=== PATIENT | male | born 1955 | race Caucasian/White ===

== ENCOUNTER → 2024-07-18 | Outpatient (CLI) | payer BC, MEDICARE, OTHER ==
--- NOTE | 2024-07-18 19:29 | US ---
EXAMINATION TYPE: US kidneys/renal and bladder DATE OF EXAM: 07/18/2024 COMPARISON: US & CT CLINICAL INDICATION: Male, 69 years old with history of R31.9 HEMATURIA, UNSPECIFIED; TECHNIQUE: Grayscale and color Doppler imaging of the bilateral kidneys and urinary bladder: FINDINGS: EXAM MEASUREMENTS: Right Kidney: 11.7 x 5.9 x 5.9 cm Left Kidney: 11.9 x 5.6 x 4.4 cm Right Kidney: No hydronephrosis or masses seen Left Kidney: Cortical thinning, lobulated contour, no evidence of hydro Bladder: wnl Bilateral Jets seen: No There is no evidence for hydronephrosis at this point in time. No nephrolithiasis is seen. Corticome dullary differentiation is maintained. Cortical thinning with lobular contour of the left kidney. No masses are identified. The urinary bladder is anechoic. Bilateral ureteral jets are seen. IMPRESSION: 1. No hydronephrosis or nephrolithiasis. No discrete renal mass identified. Consider further evaluati on with CT urogram if there is continued clinical concern. 2. Cortical thinning of the left kidney which may be sequelae of prior insult. [facility], , 07/18/2024 7:27 PM
== END | disposition home or self-care (01) ==
LOC: RADUSWWP 14:57
PROVIDERS: ATTEND Internal Medicine
DX: R31.9 Hematuria, unspecified
CPT/HCPCS: 76770

== ENCOUNTER 2025-01-30 05:45 | Day surgery (SDC) | payer MEDICARE ==
[2025-01-25 11:53] VITALS: BMI 33.8
[~2025-01-30 05:45] MED LIST: GENTAMICIN 120 MG in SODIUM CHLORIDE 0.9% 100 ML IVPB PRN
[2025-01-30] MEDS ORDERED: LIDOCAINE 1% (10MG/ML) FOR IV START INTRADERMA PRN (05:55)
--- NOTE | 2025-01-30 06:46 | XR ---
EXAMINATION TYPE: XR KUB DATE OF EXAM: 01/30/2025 COMPARISON: CT urogram to 02/27/2025 HISTORY: N20.0 left renal stone TECHNIQUE: Single supine KUB image of the abdomen is obtained FINDINGS: Small bowel demonstrates no evidence for dilatation or air fluid levels. Gas and fecal material is seen in non-distended colon. No convincing evidence for pneumoperitoneum. Redemonstration of curvilinear calcification in the region of the left kidney. Vascular calcification s identified. Surgical clip within the left pelvis. The lung bases are clear. The osseous structures are intact. IMPRESSION: 1. Redemonstration of irregular curvilinear opacity within the region of the left kidney as seen on prior CT urogram. 2. 5 mm calcification overlying the region of the left kidney which is favored to represent a vascul ar calcification on CT urogram. [facility], , 01/30/2025 6:44 AM
[2025-01-30] MEDS ORDERED: fentaNYL (PF) 50 MCG/ML 2 ML AMP IV PRN (07:00)
[2025-01-30] MEDS: IV FLUID CONTINUATION 1,000 ML IV ONE (07:20)
[2025-01-30 07:21] LABS: Glucose,Whole Blood 134 mg/dL (70-110)
[2025-01-30] MEDS: LACTATED RINGERS 1,000 ML IV SCH (07:22)
[2025-01-30] MEDS: DEXAMETHASONE SOD PHOSPHATE 4 MG/ML 1 ML VIAL IV ONE (07:24)
[2025-01-30] MEDS: ONDANSETRON 4 MG/2 ML VIAL IVP ONE (07:25)
[2025-01-30] MEDS ORDERED: SUCCINYLCHOLINE CHLORIDE 200 MG/10 ML VIAL IV ONE (07:27)
[2025-01-30] MEDS ORDERED: GLYCOPYRROLATE 0.2 MG/ML 2 ML VIAL ONE (07:27)
[2025-01-30] MEDS ORDERED: ROCURONIUM 10 MG/ML (5 ML VIAL) IV ONE (07:27)
[2025-01-30] MEDS ORDERED: fentaNYL (PF) 50 MCG/ML 2 ML AMP ONE (07:27)
[2025-01-30] MEDS ORDERED: ePHEDrine 50 MG/ML 1 ML VIAL ONE (07:27)
[2025-01-30] MEDS ORDERED: VASOPRESSIN 20 UNIT/ML 1 ML VIAL ONE (07:27)
[2025-01-30] MEDS ORDERED: NEOSTIGMINE 1 MG/ML 10 ML VIAL ONE (07:27)
[2025-01-30] MEDS ORDERED: PROPOFOL 10 MG/ML 20 ML VIAL IV ONE (07:27)
[2025-01-30] MEDS ORDERED: PHENYLEPHRINE 10 MG/ML VIAL ONE (07:27)
[2025-01-30] MEDS ORDERED: LIDOCAINE 2% (PF) 20 MG/ML 5 ML VIAL ONE (07:27)
[2025-01-30] MEDS: ceFAZolin 2 GM in DEXTROSE 5% IN WATER 50 ML IVPB PRN (07:35)
[2025-01-30] MEDS: IOPAMIDOL-370 100ML BTL MISCELLANE ONE (07:58)
[2025-01-30] MEDS: LACTATED RINGERS 1,000 ML IV ONE (09:20)
--- NOTE | 2025-01-30 10:06 | P.OP ---
Date of Procedure: 01/30/25 Preoperative Diagnosis: Left renal stones Postoperative Diagnosis: Same Procedure(s) Performed: Percutaneous access left kidney Anesthesia: GETA Pathology: none sent Condition: stable Indications for Procedure: Patient is 69. He has a large left renal stone. is doing a percutaneous nephrostolithotomy and has asked me to do percutaneous access Description of Procedure: The patient is on the operating table. He has had previous cystoscopy with placement of a left ureteral catheter. Air is injected through the catheter to outline the collecting system. I first attempt with a Chiba needle to intubate a left middle pole calyx without fail. I then unable to intubate a left upper pole calyx. I passed the [place] mandrel wire down into the proximal ureter. The 6 Cameroonian catheter was passed over the wire into the left renal pelvis. I removed the [place] mandrel wire and passed an 035 Super Stiff wire into the left proximal ureter. Over the Super Stiff wire then used an 8-10 Cameroonian dilator. The inner sheath was removed and I passed a second working wire into the proximal ureter. Over the working wire then dilate the tract to 30 Cameroonian with the dilating balloon and passed a 30 Cameroonian sheath into the upper pole calyx on the left side.
--- NOTE | 2025-01-30 10:20 | FL ---
EXAMINATION TYPE: FL Perc Nephrostomy New Access DATE OF EXAM: 01/30/2025 10:15 AM COMPARISON: Pre Operative Images if available both CT/MRI or plain film CLINICAL INDICATION: Male, 69 years old with history of Left Kidney Stone; TECHNIQUE: FL Perc Nephrostomy New Access, multiple fluoroscopic images provided for procedure. DAP: 112.38 mGym2 Gycm2 uGym2 cGycm2 or equivalent. FINDINGS: IMPRESSION: 1. Report was generated for administrative purposes only. 2. Please see the operative/procedural note for further details. [facility], , 01/30/2025 10:18 AM
[2025-01-30] MEDS ORDERED: MAG HYDROX/AL HYDROX/SIMETH 30 ML CUP PO PRN (10:25)
[2025-01-30] MEDS ORDERED: ACETAMINOPHEN TAB 325 MG TAB PO PRN (10:25)
[2025-01-30] MEDS ORDERED: ONDANSETRON 4 MG/2 ML VIAL IVP PRN (10:25)
[2025-01-30] MEDS: HYDROmorphone 0.5 MG/0.5 ML SYRINGE IVP PRN (10:26)
--- NOTE | 2025-01-30 11:26 | P.HPIHPCON ---
History of Present Illness H&P Date: 01/30/25 Chief Complaint: Left renal stone, calcified stitch This is a 69-year-old male with a very complicated urological history, history of bilateral ureteral injury during colon resection, requiring a ureteral reimplant in 10 for nephrostomy tubes. He had a CT abdomen and pelvis that showed evidence of calcified stone within the collecting system. He has been having gross hematuria. CT urogram, and cystoscopy showed no additional abnormalities. Underwent a diagnostic ureteroscopy that showed evidence of a large calcified what appeared to be a stitch. Discussed with him given this finding the attempt to remove this ureteroscopy likely would be very difficult. Discussed the option of doing this percutaneously. Risk of bleeding, infection, injury to nearby organs were discussed. He understood all the risk and agreed to proceed Consent for Procedure: I have explained the operation/procedure to the patient, including the risks, benefits, side effects, alternative therapies (including not receiving the proposed treatment or service), the likelihood of the patient achieving his/her goals, and potential recuperation problems for the procedure/sedation/analgesia, as well as any blood products, if indicated. I also explained to the patient the risks, benefits and side effects of the alternatives, as well as the risks related to not receiving the proposed procedure, care, treatment, or services. Past Medical History Past Medical History: COPD, Diabetes Mellitus, GERD/Reflux, Hyperlipidemia, Hypertension Additional Past Medical History / Comment(s): left kidney stones, 2011-had diverticulitis, 2013 went back to have colostomy reversal - pt was transferred to [facility] on Life Support due to leak @ anastomsis and sally ureters being cut History of Any Multi-Drug Resistant Organisms: None Reported Past Surgical History: Bowel Resection Additional Past Surgical History / Comment(s): 2013 ileostomy-mult surgeries to repair,2011-colostomy r/t diverticulitis Past Anesthesia/Blood Transfusion Reactions: No Reported Reaction Additional Past Anesthesia/Blood Transfusion Reaction / Comment(s): no known reactions to blood transfusion Smoking Status: Current every day smoker - Past Family History Mother Family Medical History: No Reported History Medications and Allergies Home Medications Medication Instructions Recorded Confirmed Type Atorvastatin Calcium [Lipitor] 40 mg PO DAILY 01/25/25 01/30/25 History HYDROcodone/APAP 5-325MG [Thelma 1 tab PO BID PRN 01/25/25 01/30/25 History 5-325] Tamsulosin HCl [Flomax] 0.4 mg PO HS 01/25/25 01/30/25 History gemfibroziL [Lopid] 600 mg PO AC-BID 01/25/25 01/30/25 History lisinopriL [Zestril] 40 mg PO QAM 01/25/25 01/30/25 History metFORMIN HCL [Glucophage] 1,000 mg PO DAILY 01/25/25 01/30/25 History Allergies Allergy/AdvReac Type Severity Reaction Status Date / Time No Known Allergies Allergy Verified 01/30/25 06:57 Surgical - Exam Vital Signs Temp Pulse Resp BP Pulse Ox 97.7 F 97 18 130/69 97 01/30/25 07:20 01/30/25 07:20 01/30/25 07:20 01/30/25 07:20 01/30/25 07:20 - General no distress - Eyes normal ocular movement, no pale - ENT normal nares, normal mucosa - Respiratory normal expansion, normal respiratory effort - Abdomen Abdomen: soft, non tender, no distended - Psychiatric oriented to time, oriented to person, oriented to place Results - Labs Abnormal Lab Results - Last 24 Hours (Table) 01/30/25 Range/Units 07:10 POC Glucose (mg/dL) 134 H (70-110) mg/dL Assessment and Plan Assessment: OR for left PCNL
--- NOTE | 2025-01-30 11:37 | P.OP ---
Date of Procedure: 01/30/25 Preoperative Diagnosis: Left renal stone, retained stitch Postoperative Diagnosis: Same Procedure(s) Performed: Left PCNL, cystoscopy, left ureteral catheterization Implants: None Anesthesia: CHANCEA Surgeon: Semaj Monson Estimated Blood Loss (ml): 50 Pathology: other (Left calcified retained stitch) Condition: stable Disposition: PACU Indications for Procedure: This is a 69-year-old male with a very complicated urological history, history of bilateral ureteral injury during colon resection, requiring a ureteral reimplant in 10 for nephrostomy tubes. He had a CT abdomen and pelvis that showed evidence of calcified stone within the collecting system. He has been having gross hematuria. CT urogram, and cystoscopy showed no additional abnormalities. Underwent a diagnostic ureteroscopy that showed evidence of a large calcified what appeared to be a stitch. Discussed with him given this finding the attempt to remove this ureteroscopy likely would be very difficult. Discussed the option of doing this percutaneously. Risk of bleeding, infection, injury to nearby organs were discussed. He understood all the risk and agreed to proceed Operative Findings: Large calcified stitch, the size of the stitch was greater than 10 cm Description of Procedure: Patient was brought to the operating room, General anesthesia was induced. He was prepped and draped in sterile fashion placed in a dorsolithotomy position. Cystoscope fitted with a 22 Kinyarwanda sheath was inserted per urethra, cystoscopy was performed showed no abnormality within the bladder. The left ureteral orifice was visualized at the level of the dome, a Glidewire was advanced through the scope and up the ureteral orifice, the scope was removed with the wire in place. Next a lesion balloon catheter was passed over the wire and into the proximal ureter. A 16 Kinyarwanda Arrington was placed and the catheter was secured to the Arrington. At this point the patient was placed in a prone position, all pressure points were padded, the left flank was prepped and draped in sterile fashion. Access was obtained by Dr. Corbin, please see his part of his procedure After access was obtained by Dr. Corbin into the left upper pole. At this point a rigid nephroscope was inserted through the access sheath, renoscopy was performed, I was able to advance the scope to the renal pelvis, at this point part of the calcified stitch was grasped using the grasper and removed intact . At this time ice which to the flexible cystoscope, the remainder of the retained stitch was removed completely. Evaluation of all the calyces was performed, which showed no additional residual stitch or any calcification. Under fluoroscopy was ensured all calyces were evaluated. I also advanced the scope down the proximal ureter which showed no additional calcification within the ureter. At this time the cystoscope was withdrawn, next a 12 Kinyarwanda nephrostomy tube was passed over the wire and into the renal pelvis, antegrade nephrostogram was performed which showed no evidence of contrast extravasation and contrast was seen going down the ureter. At this time the sheath was removed with the nephrostomy tube in place, the medial edge of the incision was closed using 3-0 Vicryl, the lateral aspect of the incision was closed using 3-0 silk, the nephrostomy tube was secured to the skin using the silk stitch. Sterile dressing was applied to the incision. Patient was awakened from anesthesia and taken to recovery in stable condition
[2025-01-30] MEDS: SODIUM CHLORIDE 0.9% 1,000 ML IV SCH (11:53)
--- NOTE | 2025-01-30 13:48 | P.CRDCN ---
History of Present Illness History of present illness: HISTORY OF PRESENT ILLNESS: This is a 69-year-old male with a past medical history significant for hypertension, hyperlipidemia, diabetes, nicotine dependence, bowel obstruction with previous colon resection and colostomy. 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 We have been asked to see the patient in consultation for rhythm change. Patient examined at the bedside. Patient is admitted to the hospital secondary to left renal stone. He underwent. Left PCNL, cystoscopy, left u reteral catheterization with Dr. Monson today. Cardiology was consulted for rhythm change. Spoke with patient's nurse who states that she was told patient was tachycardic post procedure. EKGs reviewed revealing sinus mechanism with occasional PACs and PVCs. No significant arrhythmia noted. The patient denies any chest pain or pressure. He denies any shortness of breath. Denies palpitations. DIAGNOSTICS: - EKG reveals sinus mechanism with PACs and PVCs. No signs of acute ischemia. - Laboratory data: Not available at the time of this dictation - Current home cardiac medications include atorvastatin 40 mg daily, lisinopril 40 mg daily. - No previous echocardiogram, stress test, or cardiac catheterization available in EMR for review REVIEW OF SYSTEMS: At the time of my exam: CONSTITUTIONAL: Denies fever or chills. HEENT: Denies blurred vision, vision changes, or eye pain. Denies hemoptysis CARDIOVASCULAR: Denies chest pain. Denies orthopnea. Denies PND. Denies palpitations RESPIRATORY: Denies shortness of breath. GASTROINTESTINAL: Denies abdominal pain. Denies nausea or vomiting. HEMATOLOGIC: Denies bleeding disorders. GENITOURINARY: Denies any blood in urine. SKIN: Denies pruitis. Denies rash. PHYSICAL EXAM: VITAL SIGNS: Reviewed. GENERAL: Well-developed in no acute distress. HEENT: Head is normocephalic. Pupils are equal, round. Sclerae anicteric. Mucous membranes of the mouth are moist. Neck supple. No JVD or thyromegaly LUNGS: Respirations even and unlabored. Lungs essentially clear to auscultation bilaterally. HEART: Regular rate and rhythm. S1 and S2 heard. Systolic murmur noted ABDOMEN: Soft. Nondistended. Nontender. Colostomy present EXTREMITIES: Normal range of motion. No clubbing or cyanosis. Peripheral pulses intact. No lower extremity edema NEUROLOGIC: Awake and alert. Oriented x 3. ASSESSMENT: Left renal stone, s/p left PCNL, cystoscopy, left ureteral catheterization with Dr. Monson Sinus arrhythmia, EKG reveals sinus mechanism with PACs and PVCs Hypertension Hyperlipidemia Diabetes Bowel obstruction with previous colon resection and colostomy Nicotine dependence, patient smokes 1 pack/day Obesity: BMI 33.5 PLAN: EKG reveals sinus mechanism with PACs/PVCs. May be secondary to anesthesia. No significant arrhythmia noted. No evidence of acute coronary event. Obtain 2D echo to assess cardiac structure and function Continue telemetry monitoring Resume home cardiac medications Repeat EKG in a.m. Check CBC, BMP, magnesium, TSH, lipid panel, and hemoglobin A1c in a.m. Recommend outpatient ischemic evaluation due to multiple risk factors Further recommendations pending patient course Nurse practitioner note has been reviewed by physician. Signing provider agrees with the documented findings, assessment, and plan of care documented by SIZE TESTER as a scribe. Past Medical History Past Medical History: COPD, Diabetes Mellitus, GERD/Reflux, Hyperlipidemia, Hypertension Additional Past Medical History / Comment(s): left kidney stones, 2011-had diverticulitis, 2013 went back to have colostomy reversal - pt was transferred to [facility] on Life Support due to leak @ anastomsis and sally ureters being cut History of Any Multi-Drug Resistant Organisms: None Reported Past Surgical History: Bowel Resection Additional Past Surgical History / Comment(s): 2012 ileostomy-mult surgeries to repair,2011-colostomy r/t diverticulitis Past Anesthesia/Blood Transfusion Reactions: No Reported Reaction Additional Past Anesthesia/Blood Transfusion Reaction / Comment(s): no known reactions to blood transfusion Smoking Status: Current every day smoker - Past Family History Mother Family Medical History: No Reported History Medications and Allergies Home Medications Medication Instructions Recorded Confirmed Type Atorvastatin Calcium [Lipitor] 40 mg PO DAILY 01/25/25 01/30/25 History HYDROcodone/APAP 5-325MG [Macy 1 tab PO BID PRN 01/25/25 01/30/25 History 5-325] Tamsulosin HCl [Flomax] 0.4 mg PO HS 01/25/25 01/30/25 History gemfibroziL [Lopid] 600 mg PO AC-BID 01/25/25 01/30/25 History lisinopriL [Zestril] 40 mg PO QAM 01/25/25 01/30/25 History metFORMIN HCL [Glucophage] 1,000 mg PO DAILY 01/25/25 01/30/25 History Allergies Allergy/AdvReac Type Severity Reaction Status Date / Time No Known Allergies Allergy Verified 01/30/25 06:57 Physical Exam Vitals: Vital Signs Temp Pulse Pulse Resp BP BP Pulse Ox 01/30/25 12:41 97.9 F 91 16 114/67 92 L 01/30/25 12:13 92 16 101/53 98 01/30/25 11:57 103 H 16 103/51 98 01/30/25 11:42 99 16 99/53 98 01/30/25 11:27 99 16 93/44 98 01/30/25 11:11 97 16 91/46 94 L 01/30/25 10:58 98 16 95/49 94 L 01/30/25 10:43 95 16 105/53 94 L 01/30/25 10:28 87 16 114/53 98 01/30/25 10:12 97 F L 96 14 114/54 98 01/30/25 07:20 97.7 F 97 18 130/69 97 Intake and Output 01/29/25 01/30/25 01/30/25 22:59 06:59 14:59 Intake Total 1050 Output Total 15 Balance 1035 Intake: IV 1050 Output: Estimated Blood Loss 15 Other: Weight 106 kg Results Current Medications Generic Name Dose Route Start Last Admin Trade Name Freq PRN Reason Stop Dose Admin Acetaminophen 650 mg 01/30/25 10:25 Acetaminophen Tab 325 Mg Tab PO 03/01/25 10:24 Q4HR PRN Fever and/ or Pain Hydrocodone Bitart/Acetaminophen 1 each 01/30/25 10:28 Hydrocodone/Apap 5-325mg 1 Each Tab PO 03/01/25 10:27 Q6HR PRN Pain Al Hydroxide/Mg Hydroxide 30 ml 01/30/25 10:25 Mag Hydrox/Al Hydrox/Simeth 30 Ml Cup PO 03/01/25 10:24 QID PRN Indigestion Atorvastatin Calcium 40 mg 01/31/25 09:00 Atorvastatin 40 Mg Tab PO 03/02/25 08:59 DAILY JUAN JOSÉ Fenofibrate 160 mg 01/31/25 09:00 Fenofibrate 160 Mg Tab PO DAILY JUAN JOSÉ Fentanyl Citrate 50 mcg 01/30/25 07:00 Fentanyl (Pf) 50 Mcg/Ml 2 Ml Amp IV 01/30/25 23:00 Q3M PRN Phase I - Pain Control Hydromorphone HCl 1 mg 01/30/25 10:27 Hydromorphone 2 Mg/Ml 1 Ml Syringe IVP 03/01/25 10:26 Q4HR PRN Pain Gentamicin Sulfate 120 mg/ 103 mls @ 103 mls/hr 01/30/25 05:00 Sodium Chloride IVPB 01/30/25 23:00 ONCE PRN pre-op Lactated Ringer's 1,000 mls @ 20 mls/hr 01/30/25 05:55 01/30/25 07:22 Lactated Ringers IV 03/01/25 05:54 20 mls/hr .Q24H JUAN JOSÉ Administration Sodium Chloride 1,000 mls @ 75 mls/hr 01/30/25 10:30 01/30/25 11:53 Saline 0.9% IV 03/01/25 10:29 Not Given .[id number] JUAN JOSÉ Ketorolac Tromethamine 15 mg 01/30/25 12:00 Ketorolac 15 Mg/Ml 1 Ml Vial IVP 02/04/25 10:27 Q6HR JUAN JOSÉ Lidocaine HCl 0.1 ml 01/30/25 05:55 Lidocaine 1% (10mg/Ml) For Iv Start INTRADERMA 03/01/25 05:54 PER PROTOCOL PRN IV Start Lisinopril 40 mg 01/31/25 09:00 Lisinopril 20 Mg Tab PO 03/02/25 08:59 QAM JUAN JOSÉ Metformin HCl 1,000 mg 01/31/25 09:00 Metformin 500 Mg Tab PO 03/02/25 08:59 DAILY JUAN JOSÉ Ondansetron HCl 4 mg 01/30/25 10:25 Ondansetron 4 Mg/2 Ml Vial IVP 03/01/25 10:24 Q6HR PRN Nausea And Vomiting Tamsulosin HCl 0.4 mg 01/30/25 21:00 Tamsulosin 0.4 Mg Cap.Er.24h PO 03/01/25 20:59 HS [facility] Intake and Output 01/29/25 01/30/25 01/30/25 22:59 06:59 14:59 Intake Total 1050 Output Total 15 Balance 1035 Intake: IV 1050 Output: Estimated Blood Loss 15 Other: Weight 106 kg Patient Weight 01/31/25 06:59 Weight 106 kg
[2025-01-30] MEDS: KETOROLAC 15 MG/ML 1 ML VIAL IVP SCH (14:03)
[2025-01-30 16:39] LABS: Glucose,Whole Blood 185 mg/dL (70-110)
[2025-01-30 20:31] LABS: Glucose,Whole Blood 160 mg/dL (70-110)
[2025-01-30] MEDS: TAMSULOSIN 0.4 MG CAP.ER.24H PO SCH (21:28)
[2025-01-31] MEDS: HYDROcodone/APAP 5-325MG 1 EACH TAB PO PRN (05:47)
[2025-01-31 06:12] LABS: Glucose,Whole Blood 131 mg/dL (70-110)
--- NOTE | 2025-01-31 07:24 | CA ---
Transthoracic Echo Report Name: Daryl Soria Age: 69 Gender: M : 1955 Exam Date: 01/30/2025 14:24 Exam Location: [place] [facility] Ht (in): 70 Wt (lb): 233 Ordering Physician: Vivi Sena Attending/Referring Phys: [id number], Jaida [employer] Mariela Ybarra RDCS Procedure CPT: Indications: Tachycardia, LV function Cardiac Hx: Technical Quality: Fair Contrast 1: Total Dose (mL): Contrast 2: Total Dose (mL): MEASUREMENTS (Male / Female) Normal Values 2D ECHO LV Diastolic Diameter PLAX 5.0 cm 4.2 - 5.9 / 3.9 - 5.3 cm LV Systolic Diameter PLAX 3.5 cm IVS Diastolic Thickness 1.3 cm 0.6 - 1.0 / 0.6 - 0.9 cm LVPW Diastolic Thickness 1.3 cm 0.6 - 1.0 / 0.6 - 0.9 cm LV Relative Wall Thickness 0.5 RV Internal Dim ED PLAX 1.6 cm LA Systolic Diameter LX 3.2 cm 3.0 - 4.0 / 2.7 - 3.8 cm LV Diastolic Volume MOD BP 41.3 cm??? 67 - 155 / 56 - 104 cm??? LV Systolic Volume MOD BP 14.3 cm??? - 58 / 19 - 49 cm??? LV Ejection Fraction MOD BP 65.3 % >= 55 % LV Cardiac Index MOD BP 1022.2 cm???/min???m??? LV Diastolic Volume MOD 4C 45.8 cm??? LV Systolic Volume MOD 4C 17.7 cm??? LV Ejection Fraction MOD 4C 61.4 % LV Cardiac Index MOD 4C 1066.1 cm???/min???m??? LV Diastolic Length 4C 6.3 cm LV Systolic Length 4C 5.1 cm LV Diastolic Volume MOD 2C 37.0 cm??? LV Systolic Volume MOD 2C 11.7 cm??? LV Ejection Fraction MOD 2C 68.3 % LV Cardiac Index MOD 2C 960.4 cm???/min???m??? LV Diastolic Length 2C 6.3 cm LV Systolic Length 2C 5.2 cm LA Volume 53.0 cm??? - 58 / 22 - 52 cm??? LA Volume Index 22.9 cm???/m??? 16 - 28 cm???/m??? M-MODE Aortic Root Diameter MM 3.4 cm LA Systolic Diameter MM 3.4 cm LA Ao Ratio MM 1.0 AV Cusp Separation MM 1.8 cm DOPPLER MV Area PHT 3.3 cm??? Mitral E Point Velocity 73.7 cm/s Mitral A Point Velocity 81.1 cm/s Mitral E to A Ratio 0.9 MV Deceleration Time 229.5 ms TR Peak Velocity 255.2 cm/s TR Peak Gradient 26.1 mmHg Right Ventricular Systolic Press 31.1 mmHg FINDINGS Left Ventricle Left ventricular ejection fraction is estimated at 55-60 %. Normal left ventricular systolic function with no obvious regional wall motion abnormalities. Left ventricular cavity size normal.Mildly increased left ventricular wall thickness. Right Ventricle Right ventricle not well visualized. Right ventricular systolic pressure within normal limits. Right Atrium Moderate right atrial dilatation. Left Atrium Moderate left atrial dilatation. Mitral Valve Structurally normal mitral valve. mild mitral regurgitation. No mitral stenosis. Mitral annular calcification. Aortic Valve Trileaflet aortic valve. No aortic stenosis.aortic valve not well visualized. Tricuspid Valve Structurally normal tricuspid valve. Mild tricuspid regurgitation. No tricuspid stenosis. Pulmonic Valve Pulmonic valve not well visualized. . No pulmonic stenosis. Pericardium No pericardial or pleural effusion. Aorta Normal size aortic root and proximal ascending aorta. CONCLUSIONS Technically difficult study. Normal left ventricular size and systolic function Very limited Doppler study with mild mitral and tricuspid regurgitation Previewed by: Dr. Ahsan Hinds MD (Electronically Signed) Final Date: 31 January 2025 07:23
[2025-01-31 08:23] LABS: BUN/Creat Ratio 25.79 Ratio (12.00-20.00); Blood Urea Nitrogen 36.1 mg/dL (9.0-27.0); Calcium 8.5 mg/dL (8.7-10.3); Carbon Dioxide 19.2 mmol/L (21.6-31.8); Chloride 104 mmol/L (96-109); Chol/HDL Ratio 3.52 Ratio; Glucose 123 mg/dL (70-110); LDL Cholesterol,Calculated 67.1 mg/dL (0.0-131.0); Magnesium 1.3 mg/dL (1.5-2.4); Potassium 4.1 mmol/L (3.5-5.5); Sodium 135 mmol/L (135-145)
[2025-01-31 08:36] LABS: Basophils # (A) 0.07 X 10*3/uL (0.00-0.10); Basophils % (A) 0.4 %; Eosinophils # (A) 0.13 X 10*3/uL (0.04-0.35); Eosinophils % (A) 0.8 %; HCT 34.7 % (39.6-50.0); HGB 11.3 g/dL (13.0-17.0); Lymphocytes % (A) 16.8 %; MCH 29.1 pg (27.0-32.0); MCHC 32.6 g/dL (32.0-37.0); MCV 89.4 FL (80.0-97.0); Mean Platelet Volume 10.8 FL (9.5-12.2); Monocytes # (A) 1.24 X 10*3/uL (0.20-1.00); Monocytes % (A) 7.4 %; NRBC Per 100 WBC 0 X 10*3/uL (0.00-0.01); Neutrophils # (A) 12.37 X 10*3/uL (1.80-7.70); Neutrophils % (A) 74.2 %; Platelet Count 235 X 10*3/uL (140-440); RBC 3.88 X 10*6/uL (4.40-5.60); RDW 14.4 % (11.5-14.5); WBC 16.68 X 10*3/uL (4.50-10.00)
[2025-01-31] MEDS: lisinopriL 20 MG TAB PO SCH (08:56)
[2025-01-31] MEDS: metFORMIN 500 MG TAB PO SCH (08:56)
[2025-01-31] MEDS: FENOFIBRATE 160 MG TAB PO SCH (08:56)
[2025-01-31] MEDS: HYDROmorphone 2 MG/ML 1 ML SYRINGE IVP PRN (08:57)
[2025-01-31] MEDS: ATORVASTATIN 40 MG TAB PO SCH (08:57)
--- NOTE | 2025-01-31 09:02 | P.DS ---
Providers Expected date of discharge: 01/31/25 Attending physician: Semaj Monson MD Consults: 01/30/25 12:21 Consult Physician Urgent Consulting Provider: Caemron Michaels Consult Reason/Comments: Rypaulinom change Do you want consulting provider notified?: Yes Primary care physician: Nae Snider Hospital Course: On the day of admission, the patient underwent an uncomplicated left PCNL. A retained stitch was removed. Postoperatively, he was afebrile with stable vital signs. He was reasonably comfortable on the first morning following surgery. At that time, the nephrostomy tube was draining very faintly blood-tinged urine, and the urine draining from the Arrington catheter was clear yellow in color. The patient felt comfortable being discharged home with the nephrostomy tube. Procedures: Left percutaneous nephrolithotomy (PCNL) on January 30, 2025. Patient Condition at Discharge: Good Plan - Discharge Summary Discharge Rx Participant: Yes New Discharge Prescriptions: New HYDROcodone/APAP 5-325MG [Wisner 5-325] 1 - 2 tab PO Q6HR PRN #10 tab PRN Reason: Moderate To Severe Pain (4-10) No Action Tamsulosin HCl [Flomax] 0.4 mg PO HS Atorvastatin Calcium [Lipitor] 40 mg PO DAILY HYDROcodone/APAP 5-325MG [Wisner 5-325] 1 tab PO BID PRN PRN Reason: Pain metFORMIN HCL [Glucophage] 1,000 mg PO DAILY lisinopriL [Zestril] 40 mg PO QAM gemfibroziL [Lopid] 600 mg PO AC-BID Discharge Medication List Atorvastatin Calcium [Lipitor] 40 mg PO DAILY 01/25/25 [History] HYDROcodone/APAP 5-325MG [Wisner 5-325] 1 tab PO BID PRN 01/25/25 [History] Tamsulosin HCl [Flomax] 0.4 mg PO HS 01/25/25 [History] gemfibroziL [Lopid] 600 mg PO AC-BID 01/25/25 [History] lisinopriL [Zestril] 40 mg PO QAM 01/25/25 [History] metFORMIN HCL [Glucophage] 1,000 mg PO DAILY 01/25/25 [History] HYDROcodone/APAP 5-325MG [Wisner 5-325] 1 - 2 tab PO Q6HR PRN #10 tab 01/31/25 [Rx] Follow up Appointment(s)/Referral(s): Semaj Monson MD [STAFF PHYSICIAN] - 02/05/25 1:40 pm Activity/Diet/Wound Care/Special Instructions: Discharge home with nephrostomy tube. Drink plenty of fluids. No lifting or strenuous activity. Discharge Disposition: HOME SELF-CARE
--- NOTE | 2025-01-31 11:25 | P.PN ---
Subjective HISTORY OF PRESENT ILLNESS: This is a 69-year-old male with a past medical history significant for hypertension, hyperlipidemia, diabetes, nicotine dependence, bowel obstruction with previous colon resection and colostomy. 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 We have been asked to see the patient in consultation for rhythm change. Patient examined at the bedside. Patient is admitted to the hospital secondary to left renal stone. He underwent. Left PCNL, cystoscopy, left ureteral catheterization with Dr. Monson today. Cardiology was consulted for rhythm change. Spoke with patient's nurse who states that she was told patient was tachycardic post procedure. EKGs reviewed revealing sinus mechanism with occasional PACs and PVCs. No significant arrhythmia noted. The patient denies any chest pain or pressure. He denies any shortness of breath. Denies palpitations. DIAGNOSTICS: - EKG reveals sinus mechanism with PACs and PVCs. No signs of acute ischemia. - Laboratory data: Not available at the time of this dictation - Current home cardiac medications include atorvastatin 40 mg daily, lisinopril 40 mg daily. - No previous echocardiogram, stress test, or cardiac catheterization available in EMR for review 01/31/2025 Patient examined this morning at bedside. Patient currently denies any chest pain or pressure. He denies shortness of breath. Vital signs are stable. Echocardiogram completed revealing ejection fraction 55 to 60% with mild mitral and tricuspid regurgitation. PHYSICAL EXAM: VITAL SIGNS: Reviewed. GENERAL: Well-developed in no acute distress. HEENT: Head is normocephalic. Pupils are equal, round. Sclerae anicteric. Mucous membranes of the mouth are moist. Neck supple. No JVD or thyromegaly LUNGS: Respirations even and unlabored. Lungs essentially clear to auscultation bilaterally. HEART: Regular rate and rhythm. S1 and S2 heard. Systolic murmur noted ABDOMEN: Soft. Nondistended. Nontender. Colostomy present EXTREMITIES: Normal range of motion. No clubbing or cyanosis. Peripheral pulses intact. No lower extremity edema NEUROLOGIC: Awake and alert. Oriented x 3. ASSESSMENT: Left renal stone, s/p left PCNL, cystoscopy, left ureteral catheterization with Dr. Monson Sinus arrhythmia, EKG reveals sinus mechanism with PACs and PVCs Hypertension Hyperlipidemia Diabetes Bowel obstruction with previous colon resection and colostomy Nicotine dependence, patient smokes 1 pack/day Obesity: BMI 33.5 PLAN: Continue current cardiac medications Patient is stable for discharge home today from a cardiac standpoint Recommend outpatient ischemic evaluation due to multiple risk factors Patient to follow-up with Dr. Hinds in 2 weeks Nurse practitioner note has been reviewed by physician. Signing provider agrees with the documented findings, assessment, and plan of care documented by HAND MOLD MAKER as a scribe. Objective - Vital Signs Vital signs: Vital Signs Temp 98.3 F 01/31/25 07:42 Pulse 109 H 01/31/25 07:42 Resp 18 01/31/25 07:42 BP 121/51 01/31/25 07:42 Pulse Ox 96 01/31/25 07:57 FiO2 Intake & Output 01/30/25 01/31/25 01/31/25 18:59 06:59 18:59 Intake Total 1290 Output Total 365 590 500 Balance 925 -590 -500 Weight 106 kg Intake: IV 1050 Oral 240 Output: Drainage 150 390 Left Posterior Lateral 150 390 Abdomen Urine 200 200 500 Estimated Blood Loss 15 Other: Voiding Method Indwelling Catheter Ileal Conduit (Left) # Voids 1 - Labs CBC & Chem 7: 01/31/25 02:47 01/31/25 02:47 Labs: Abnormal Lab Results - Last 24 Hours (Table) 01/30/25 01/30/25 01/31/25 Range/Units 16:37 20:30 02:47 WBC (4.50-10.00) X 10*3/uL RBC (4.40-5.60) X 10*6/uL Hgb (13.0-17.0) g/dL Hct (39.6-50.0) % Immature Gran # (0.00-0.04) X 10*3/uL Neutrophils # (1.80-7.70) X 10*3/uL Monocytes # (0.20-1.00) X 10*3/uL Carbon Dioxide (21.6-31.8) mmol/L BUN (9.0-27.0) mg/dL Est GFR (CKD-EPI) (>=60) BUN/Creatinine Ratio (12.00-20.00) Ratio Glucose (70-110) mg/dL POC Glucose (mg/dL) 185 H 160 H (70-110) mg/dL Hemoglobin A1c 6.7 H (<=6.0) % Calcium (8.7-10.3) mg/dL Magnesium (1.5-2.4) mg/dL HDL Cholesterol (40.00-60.00) mg/dL 01/31/25 01/31/25 01/31/25 Range/Units 02:47 02:47 06:03 WBC 16.68 H (4.50-10.00) X 10*3/uL RBC 3.88 L (4.40-5.60) X 10*6/uL Hgb 11.3 L (13.0-17.0) g/dL Hct 34.7 L (39.6-50.0) % Immature Gran # 0.07 H (0.00-0.04) X 10*3/uL Neutrophils # 12.37 H (1.80-7.70) X 10*3/uL Monocytes # 1.24 H (0.20-1.00) X 10*3/uL Carbon Dioxide 19.2 L (21.6-31.8) mmol/L BUN 36.1 H (9.0-27.0) mg/dL Est GFR (CKD-EPI) 55 L (>=60) BUN/Creatinine Ratio 25.79 H (12.00-20.00) Ratio Glucose 123 H (70-110) mg/dL POC Glucose (mg/dL) 131 H (70-110) mg/dL Hemoglobin A1c (<=6.0) % Calcium 8.5 L (8.7-10.3) mg/dL Magnesium 1.3 L (1.5-2.4) mg/dL HDL Cholesterol 35.50 L (40.00-60.00) mg/dL
[2025-01-31 11:27] LABS: Glucose,Whole Blood 143 mg/dL (70-110)
[2025-01-31 16:43] LABS: Glucose,Whole Blood 151 mg/dL (70-110)
[2025-01-31 20:13] LABS: Glucose,Whole Blood 206 mg/dL (70-110)
[2025-02-01 06:26] LABS: Glucose,Whole Blood 133 mg/dL (70-110)
[2025-02-01 08:28] VITALS: BP 119/74; PULSE 97; RESP 19; TEMP 97.6
[2025-02-01] MEDS: METOPROLOL TARTRATE 25 MG TAB PO SCH (10:22)
--- NOTE | 2025-02-01 11:00 | P.PN ---
Subjective HISTORY OF PRESENT ILLNESS: This is a 69-year-old male with a past medical history significant for hypertension, hyperlipidemia, diabetes, nicotine dependence, bowel obstruction with previous colon resection and colostomy. 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 We have been asked to see the patient in consultation for rhythm change. Patient examined at the bedside. Patient is admitted to the hospital secondary to left renal stone. He underwent. Left PCNL, cystoscopy, left ureteral catheterization with Dr. Monson today. Cardiology was consulted for rhythm change. Spoke with patient's nurse who states that she was told patient was tachycardic post procedure. EKGs reviewed revealing sinus mechanism with occasional PACs and PVCs. No significant arrhythmia noted. The patient denies any chest pain or pressure. He denies any shortness of breath. Denies palpitations. DIAGNOSTICS: - EKG reveals sinus mechanism with PACs and PVCs. No signs of acute ischemia. - Laboratory data: Not available at the time of this dictation - Current home cardiac medications include atorvastatin 40 mg daily, lisinopril 40 mg daily. - No previous echocardiogram, stress test, or cardiac catheterization available in EMR for review 01/31/2025 Patient examined this morning at bedside. Patient currently denies any chest pain or pressure. He denies shortness of breath. Vital signs are stable. Echocardiogram completed revealing ejection fraction 55 to 60% with mild mitral and tricuspid regurgitation. 02/01/2025 Patient examined this morning the bedside. Patient currently denies chest pain or pressure. He denies shortness of breath. Patient did have a short run of SVT yesterday. Patient is hoping to be discharged home today. PHYSICAL EXAM: VITAL SIGNS: Reviewed. GENERAL: Well-developed in no acute distress. HEENT: Head is normocephalic. Pupils are equal, round. Sclerae anicteric. Mucous membranes of the mouth are moist. Neck supple. No JVD or thyromegaly LUNGS: Respirations even and unlabored. Lungs essentially clear to auscultation bilaterally. HEART: Regular rate and rhythm. S1 and S2 heard. Systolic murmur noted ABDOMEN: Soft. Nondistended. Nontender. Colostomy present EXTREMITIES: Normal range of motion. No clubbing or cyanosis. Peripheral pulses intact. No lower extremity edema NEUROLOGIC: Awake and alert. Oriented x 3. ASSESSMENT: Left renal stone, s/p left PCNL, cystoscopy, left ureteral catheterization with Dr. Monson Sinus arrhythmia, EKG reveals sinus mechanism with PACs and PVCs Short run of SVT Hypertension Hyperlipidemia Diabetes Bowel obstruction with previous colon resection and colostomy Nicotine dependence, patient smokes 1 pack/day Obesity: BMI 33.5 PLAN: Decrease lisinopril to 20 mg daily Add metoprolol tartrate 25 mg twice a day Patient is stable for discharge home today from a cardiac standpoint Recommend outpatient ischemic evaluation due to multiple risk factors Appointment scheduled for patient to see Dr. Hinds in the office on 02/09/2025 at the [facility] Nurse practitioner note has been reviewed by physician. Signing provider agrees with the documented findings, assessment, and plan of care documented by NURSING FACULTY as a scribe. Objective - Vital Signs Vital signs: Vital Signs Temp 97.6 F 02/01/25 07:35 Pulse 97 02/01/25 07:35 Resp 19 02/01/25 07:35 BP 119/74 02/01/25 07:35 Pulse Ox 93 L 02/01/25 07:35 FiO2 Intake & Output 01/31/25 02/01/25 02/01/25 18:59 06:59 18:59 Output Total 800 1425 225 Balance -800 -1425 -225 Output: Drainage 925 225 Left Posterior Lateral 925 225 Abdomen Urine 800 500 Other: Voiding Method Ileal Conduit (Left) Urinal Ileal Conduit (Left) # Voids 1 - Labs CBC & Chem 7: 01/31/25 02:47 01/31/25 02:47 Labs: Abnormal Lab Results - Last 24 Hours (Table) 01/31/25 01/31/25 01/31/25 Range/Units 11:22 16:42 20:12 POC Glucose (mg/dL) 143 H 151 H 206 H (70-110) mg/dL 02/01/25 Range/Units 06:25 POC Glucose (mg/dL) 133 H (70-110) mg/dL
[2025-02-01 12:00] LABS: Glucose,Whole Blood 129 mg/dL (70-110)
[2025-02-02] MEDS ORDERED: lisinopriL 20 MG TAB PO SCH (09:00)
== END 2025-02-01 12:40 | disposition home or self-care (01) ==
LOC: OR 05:45 → 4SSUR 09:59 → OR 02-01 12:40
PROVIDERS: ATTEND Urology
DX: N20.0 Calculus of kidney (principal); R31.0 Gross hematuria; J44.9 Chronic obstructive pulmonary disease, unspecified; E11.9 Type 2 diabetes mellitus without complications; F17.210 Nicotine dependence, cigarettes, uncomplicated; Z79.84 Long term (current) use of oral hypoglycemic drugs
CPT/HCPCS: 93306; 86900; 86901; 80061; 80048; 84443; 83735; 85025; 86850; 82365; 83036; 50432; 74018; 50080; 52005; C2628; C1769 ×4; C1894 ×2; C1758; C1729; J0330; J1171 ×2; J1100; J2710; J0690; J2405; J3010; J1885 ×3; J2704; Q9967; J2003; J2371; J1596